=== PATIENT | female | born 1955 | race Caucasian/White ===

== ENCOUNTER → 2016-12-03 | Outpatient (CLI) | payer MEDICARE, MEDICAID ==
[~2016-12-03] MED LIST: ARIP5TAB5 PO; BUPR100T15 PO; BUPR300T43 PO; CEPH-507 PO; DOCU-34 PO; ESTR0.755 PO; LISI-594 PO; LORA10CA PO; METF500T4 PO; MIRALAX 17 GM P17 GM PO; MULT1TAB63 PO; NF-FLON16G NSEACH; NYST15PO TOP; OMEP20CA12 PO; SERT100T PO
[2016-12-03 11:29] LABS: ANION GAP 17.7 MEQ/L (3-15)
--- NOTE | 2016-12-07 15:58 | Diagnostic Imaging Report ---
INDICATION: Digital screening. The current study was also evaluated with a Computer Aided Detection (CAD) system. COMPARISONS: 11/06/2015, 10/24/2014 and 10/23/2013. FINDINGS: The exam is stable and negative. There is no mass, spiculated lesion, architectural distortion or suspicious calcification, IMPRESSION: Stable negative mammograms. BI-RADS category one. ACR BI-RADS Category 1: Negative. Result letter will be mailed to the patient. Note: At least 10% of breast cancer is not imaged by mammography. Dictated by: Dictated on workstation # [id number]
== END ==
LOC: RAD 10:20
PROVIDERS: ATTEND Family Medicine
DX: Z12.31 Encounter for screening mammogram for malignant neoplasm of breast (principal); E78.5 Hyperlipidemia, unspecified
CPT/HCPCS: 36415; 80048; G0202